=== PATIENT | female | born 1975 | race Caucasian/White ===

== ENCOUNTER → 2022-03-25 09:42 | Outpatient (BNVA) | payer BC, SELFPAY | PROVIDERS: PCP Registered Nurse; Visit Provider Registered Nurse | DX: E03.9 Hypothyroidism, unspecified (principal); R19.7 Diarrhea, unspecified | CPT/HCPCS: 80053; 84443; 85025 ==

== ENCOUNTER → 2022-07-31 08:19 | Outpatient (BNVA) | payer BC, MEDICAID, SELFPAY | PROVIDERS: PCP Registered Nurse; Visit Provider Registered Nurse | DX: E03.9 Hypothyroidism, unspecified (principal) | CPT/HCPCS: 84443 ==

== ENCOUNTER → 2022-10-14 10:13 | Outpatient (BNVA) | payer BC, MEDICAID, SELFPAY | PROVIDERS: PCP Registered Nurse; Visit Provider Registered Nurse | DX: E53.8 Deficiency of other specified B group vitamins (principal); E55.9 Vitamin D deficiency, unspecified; E50.9 Vitamin A deficiency, unspecified | CPT/HCPCS: 82306; 82607 ==

== ENCOUNTER 2022-12-15 09:54 | Outpatient (CLI) | payer BC, MEDICAID, SELFPAY ==
--- NOTE | 2022-12-15 10:00 | MM_ITS ---
WS: [id number] SCREENING DIGITAL TOMOSYNTHESIS MAMMOGRAM WITH CAD HISTORY: Z12.31 - Encounter for screening mammogram for malignant ... COMPARISON: None available. Bilateral CC and MLO with tomosynthesis views submitted. Synthetic mammography reviewed. Computer aid ed detection analyzed. Breast composition: The breasts are heterogeneously dense, which may obscure small masses. No suspici ous masses, microcalcifications or architectural distortion. MM/[id number] IMPRESSION: BI-RADS: 1-Negative FOLLOW UP: 1 Year Follow-up
== END 2022-12-15 09:55 | disposition home or self-care (01) ==
PROVIDERS: PCP Registered Nurse; Visit Provider Registered Nurse
DX: Z12.31 Encounter for screening mammogram for malignant neoplasm of breast (principal)
CPT/HCPCS: 77063; 77067

== ENCOUNTER → 2022-12-24 09:53 | Outpatient (BNVA) | payer BC, MEDICAID, SELFPAY | PROVIDERS: PCP Registered Nurse; Referring Provider Registered Nurse; Visit Provider Specialist | DX: M25.561 Pain in right knee (principal); M25.562 Pain in left knee; G89.29 Other chronic pain; R26.9 Unspecified abnormalities of gait and mobility; G80.1 Spastic diplegic cerebral palsy | CPT/HCPCS: 73560; 73565 ==

== ENCOUNTER → 2023-01-14 10:14 | Outpatient (BNVA) | payer BC, MEDICAID, SELFPAY | PROVIDERS: PCP Registered Nurse; Visit Provider Registered Nurse | DX: E03.9 Hypothyroidism, unspecified (principal); L65.9 Nonscarring hair loss, unspecified; R53.83 Other fatigue | CPT/HCPCS: 82306; 82607; 82728; 83550; 84443; 85025 ==

== ENCOUNTER → 2023-02-05 08:29 | Outpatient (BNVA) | payer BC, MEDICAID, SELFPAY | PROVIDERS: PCP Registered Nurse; Visit Provider Registered Nurse | DX: K52.29 Other allergic and dietetic gastroenteritis and colitis (principal); Z91.018 Allergy to other foods | CPT/HCPCS: 86003; 86008 ==

== ENCOUNTER 2023-06-25 09:41 | Outpatient (CLI) | payer BC, MEDICAID, SELFPAY ==
--- NOTE | 2023-06-25 10:02 | CT_ITS ---
WS: [id number] CT NECK TECHNIQUE: Contrast-enhanced CT of the neck with coronal and sagittal reformatted images. CLINICAL INFORMATION: LOCALIZED SWELLING,MASS, LUMP, HEAD/DYSPHONIA COMPARISON: None. DLP: 236.[address] scans at [facility] use at least one of these dose optimization techniques: automated e xposure control; mA and/or kV adjustment per patient size (includes targeted exams where dose is matc hed to clinical indication); or iterative reconstruction. FINDINGS: Mastoid air cells well aerated. Paranasal sinuses are well aerated. Normal posterior nasopharynx. Nor mal parapharyngeal fat. Dental artifact degrades some images at the tongue base. Tongue base appears normal. Normal parapharyngeal fat. Submandibular glands are normal. Parotid glands are normal. Normal Webster tonsils. No evidence of supraglottic or glottic mass. Normal subglottic airway. Normal thyr oid gland. A few tiny thyroid nodules. Fibrosis in the lung apices. Partially visualized intracranial contents appear normal. No cervical lymphadenopathy. Mild cervical curve. IMPRESSION: 1. No cervical lymphadenopathy. 2. Normal salivary glands. 3. No evidence of supraglottic or glottic mass. Normal subglottic airway. 4. A few small thyroid nodules. This can be followed up with ultrasound. 5. No other suspicious findings.
[2023-06-25] MEDS: iohexol 350 mg/mL 500 mL Btl (per mL) IV (10:26)
== END 2023-06-25 09:42 | disposition home or self-care (01) ==
PROVIDERS: PCP Registered Nurse; Visit Provider Specialist
DX: R22.0 Localized swelling, mass and lump, head (principal); R49.0 Dysphonia; E04.1 Nontoxic single thyroid nodule
CPT/HCPCS: 70491; Q9967

== ENCOUNTER → 2023-07-20 13:06 | Outpatient (BNVA) | payer BC, MEDICAID, SELFPAY | PROVIDERS: PCP Registered Nurse; Visit Provider Registered Nurse | DX: N39.0 Urinary tract infection, site not specified (principal); Z09 Encounter for follow-up examination after completed treatment for conditions other than malignant neoplasm; R63.5 Abnormal weight gain | CPT/HCPCS: 81000 ==

== ENCOUNTER → 2023-10-29 10:57 | Outpatient (BNVA) | payer BC, MEDICAID, SELFPAY | PROVIDERS: PCP Registered Nurse; Visit Provider Registered Nurse | DX: E03.9 Hypothyroidism, unspecified (principal); K50.90 Crohn's disease, unspecified, without complications; Z13.6 Encounter for screening for cardiovascular disorders; Z13.1 Encounter for screening for diabetes mellitus; G93.32 Myalgic encephalomyelitis/chronic fatigue syndrome; Z00.00 Encounter for general adult medical examination without abnormal findings; M54.40 Lumbago with sciatica, unspecified side; Z53.20 Procedure and treatment not carried out because of patient's decision for unspecified reasons; Z12.39 Encounter for other screening for malignant neoplasm of breast | CPT/HCPCS: 80053; 80061; 82306; 82607; 83036; 84439; 84443; 85025 ==